=== PATIENT | female | born 1950 | race Caucasian/White ===

== ENCOUNTER → 2016-05-02 | Outpatient (CLI) | payer OTHER, MEDICARE | LOC: MMPC 11:11 | PROVIDERS: ATTEND Nurse Practitioner | DX: K59.09 Other constipation (principal); M96.1 Postlaminectomy syndrome, not elsewhere classified; M54.5 Low back pain; R10.32 Left lower quadrant pain; R10.31 Right lower quadrant pain | CPT/HCPCS: 99214 ==

== ENCOUNTER → 2016-05-04 | Outpatient (CLI) | payer OTHER, MEDICARE ==
[2016-05-04 09:50] LABS: BASOPHILS # (AUTO) 0.08 10*3/UL; EOSINOPHILS % (AUTO) 1.2 % (0-8); HEMATOCRIT 44.8 % (37.0-47.0); HEMOGLOBIN 15.9 g/dL (12.0-16.0); IMM GRAN % (AUTO) 0.1 % (0-5); IMM GRAN# (AUTO) 0.01 10*3/UL; LYMPHOCYTES # (AUTO) 1.76 10*3/uL; MEAN CORPUSCULAR HEMOGLOBIN 32.5 PG (27-31); MEAN CORPUSCULAR HGB CONC 35.5 g/dL (33-37); MEAN PLATELET VOLUME 9.4 FL (7.4-12.2); MONOCYTES # (AUTO) 0.76 10*3/UL (0.3-0.8); MONOCYTES % (AUTO) 9.1 % (5-15); NEUTROPHILS # (AUTO) 5.66 10*3/UL; NEUTROPHILS % (AUTO) 67.6 % (50-80); RED BLOOD COUNT 4.89 10^6/uL (4.20-5.40); WHITE BLOOD COUNT 8.37 10^3/uL (4.8-10.8)
--- NOTE | 2016-05-04 09:54 | DI ---
US ABDOMEN COMPLETE,05/04/2016 9:07 AM: Clinical History: Abdominal pain Previous Exam: None at this facility. Findings: Multiple grayscale and color Doppler sonographic images are obtained through the abdomen, and demonst rate a normal-appearing aorta. The pancreas is normal. The liver is also normal. Patient is status post cholecystectomy. The common bile duct measures 6 mm. The right kidney measured 11.2 cm in length while the left kidney measures 10.9 cm in length. There i s no hydronephrosis nor nephrolithiasis. Renal cortices are within normal limits. The spleen was normal. The pancreas was not well evaluated but grossly normal. Impression: Normal abdominal ultrasound status post cholecystectomy.
[2016-05-04 10:08] LABS: PLATELET MORPHOLOGY COMMENT NORMAL MORPHOLOGY (NORM)
[2016-05-04 10:09] LABS: ASPARTATE AMINO TRANSFERASE 69 IU/L (8-39); BILIRUBIN,TOTAL 0.7 mg/dL (0.3-1.2); BLOOD UREA NITROGEN 21 mg/dL (7-22); CALCIUM 9.7 mg/dL (8.7-10.7); CHLORIDE 102 meq/L (98-112); CREATININE 0.6 mg/dL (0.50-1.20); EST GLOMERULAR FILTRATION > 60 (>60 ml/min/1.73m(2)); GLUCOSE 102 mg/dL (78-110); SODIUM 139 meq/L (135-145); TOTAL PROTEIN 7.2 g/dL (6.1-8.0)
== END ==
LOC: US 08:58
PROVIDERS: ATTEND Nurse Practitioner
DX: R10.84 Generalized abdominal pain (principal); I10 Essential (primary) hypertension; K59.00 Constipation, unspecified; K92.1 Melena; M96.1 Postlaminectomy syndrome, not elsewhere classified; F17.210 Nicotine dependence, cigarettes, uncomplicated
CPT/HCPCS: 36415; 76700; 80053; 84443; 85025

== ENCOUNTER → 2016-05-15 | Outpatient (CLI) | payer OTHER, MEDICARE | LOC: MMPC 11:11 | PROVIDERS: ATTEND Surgery | DX: K59.00 Constipation, unspecified (principal); R10.84 Generalized abdominal pain; K21.9 Gastro-esophageal reflux disease without esophagitis; K62.5 Hemorrhage of anus and rectum | CPT/HCPCS: 99214; G0463 ==

== ENCOUNTER → 2016-05-24 | Outpatient (CLI) | payer OTHER, MEDICARE ==
--- NOTE | 2016-05-25 08:12 | DI ---
LEFT KNEE, 05/24/2016 10:16 AM: Clinical History: Left knee pain. Previous Exam: 11/24/2014. 4 views are submitted. The AP and tunnel projections are weight bearing views. There is no acute soft tissue, osseous, or joint abnormality. There is severe joint space narrowing of the medial compartme nt and there is a defect in the anterior aspect of the medial femoral condyle consistent with an oste ochondral defect. This is not well visualized on the lateral film only a subtle lucency is seen on th e anterior aspect of the medial femoral condyle. The lateral and the patellofemoral compartments are normal. 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
== END ==
LOC: ORTHO 10:27
PROVIDERS: ATTEND Physician Assistant
DX: M25.562 Pain in left knee (principal); M17.12 Unilateral primary osteoarthritis, left knee; M21.962 Unspecified acquired deformity of left lower leg
CPT/HCPCS: 20610; 73564

== ENCOUNTER 2016-05-28 08:43 | Day surgery (SDC) | payer OTHER, MEDICARE ==
[2016-05-28] MEDS ORDERED: Lactated Ringers 0 ML PRIMARY IV ONE (09:17)
[2016-05-28] MEDS ORDERED: LIDOCAINE W/ SODIUM BICARB 0.5 ML SYR ONE ×2 (09:17→09:22)
[2016-05-28] MEDS ORDERED: Lactated Ringers 1,000 ML PRIMARY IV ONE ×2 (09:22→09:32)
--- NOTE | 2016-05-28 10:33 | GEN.OPNOTE ---
EGD / Colonoscopy Report Surgery Date: 05/28/16 Preoperative Diagnosis: Irritable bowel syndrome. Chronic constipation. Postprandial abdominal pain. GERD. Bright red blood per rectum. Postoperative Diagnosis: Same. Procedure: #1 esophagogastroduodenoscopy with biopsy. #2 complete colonoscopy with multiple random biopsies. Surgeon: Rober Austin MD Anesthesia Provider: Iva Conklin CRNA Anesthesia Type: MAC Indications: See preoperative diagnosis. EGD Findings: Esophagus: [Normal] GE Junction : [Inflammatory changes at the GE junction.] Fundus : [Some flecks of blood] Body : [Some flecks of blood] Prepyloric : [Erythema] Small Intestine : [Normal] A lubricated flexible upper endoscope was inserted and passed through the esophagus and stomach into the duodenum. The duodenum and duodenal bulb were unremarkable. Pyloric channel was patent. The stomach mucosa had little flecks of blood throughout. The patient reports she had been violently vomiting all morning. Multiple antral biopsies were taken. Hemostasis was assured. The scope was withdrawn into the distal esophagus. There were changes of reflux. Multiple biopsies were taken. Hemostasis was assured. The scope was withdrawn through the remainder of a normal-appearing esophagus and brought out through the hypopharynx under suction completing that portion of the procedure. Colonoscopy Findings: Prep : [Poor] Cecum : [No gross abnormalities] Ascending : [No gross abnormality] Transverse : [No gross abnormalities] Sigmoid : [No gross abnormality] Rectum : [No gross abnormality] Digital Rectal Exam : [Normal] A lubricated flexible colonoscope was inserted and passed to the blind end of the cecum. The blind end of the cecum and ileocecal valve were clearly seen. There is moderate amount of retained stool throughout the colon. It could not be cleared as some it was semisolid. I got a very good look but a small polyp could have been missed. Air was aspirated as the scope was withdrawn. Random biopsies were taken from the right colon, transverse colon, sigmoid colon, and rectum. There are a few scattered sigmoid diverticuli but no other gross abnormalities. The scope was withdrawn completing the procedure. Patient tolerated the procedure well without complication. She was taken to outpatient surgery in stable condition. Follow-up will be with my office on an as-needed basis. We will call the biopsy results when available and plan therapy and follow-up accordingly
[2016-05-28 11:24] VITALS: RESP 16; TEMP 98.1
== END 2016-05-28 10:56 | disposition home or self-care (01) ==
LOC: SDSC 08:43
PROVIDERS: ATTEND Surgery
DX: K58.9 Irritable bowel syndrome, unspecified (principal); K59.00 Constipation, unspecified; R10.9 Unspecified abdominal pain; K62.5 Hemorrhage of anus and rectum
CPT/HCPCS: 43239; 45380; J2704; J7120

== ENCOUNTER → 2016-08-07 | Outpatient (CLI) | payer OTHER, MEDICARE | LOC: MMPC 10:00 | PROVIDERS: ATTEND Physician Assistant | DX: M17.12 Unilateral primary osteoarthritis, left knee (principal) | CPT/HCPCS: 99212; G0463 ==